=== PATIENT | female | born 1985 | race Caucasian/White ===

== ENCOUNTER → 2024-11-07 12:20 | Outpatient (REF) | payer BC, SELFPAY | LOC: HWRAD 12:20 | PROVIDERS: ATTENDING PHYSICIAN Specialist; FAMILY PHYSICIAN Physician Assistant | DX: R22.32 Localized swelling, mass and lump, left upper limb (principal) | CPT/HCPCS: 76882 ==

== ENCOUNTER → 2024-12-01 17:29 | Outpatient (REF) | payer BC, SELFPAY | LOC: RAD 17:29 | PROVIDERS: ATTENDING PHYSICIAN Obstetrics & Gynecology | DX: N92.6 Irregular menstruation, unspecified (principal) | CPT/HCPCS: 76830; 76856 ==